=== PATIENT | female | born 1955 | race Caucasian/White ===

== ENCOUNTER 2021-01-23 19:05 | Emergency (ER) | payer MEDICARE, OTHER ==
--- NOTE | 2021-01-23 19:32 | EDM.PDOC ---
ED HPI GENERAL MEDICAL PROBLEM - General Chief Complaint: Genitourinary Problem Stated Complaint: uti Time Seen by Provider: 01/23/21 19:15 Source of Information: Reports: Patient History Limitations: Reports: No Limitations - History of Present Illness INITIAL COMMENTS - FREE TEXT/NARRATIVE: pt states x2 days of frequency, urgency, hesitancy. denies fever, chills, nausea, backache, emily hematuria. - Related Data Allergies Allergy/AdvReac Type Severity Reaction Status Date / Time hydromorphone [From Dilaudid] Allergy Other Verified 01/24/21 07:46 ondansetron [From Zofran] Allergy Vomiting Verified 01/24/21 07:46 Sulfa (Sulfonamide Allergy Other Verified 01/24/21 07:46 Antibiotics) Home Meds: Home Meds Amoxicillin/Potassium Clav [Amox Tr-K Clv 875-125 mg Tab] 1 each PO BID #10 tablet 01/23/21 [Rx] ED ROS GENERAL - Review of Systems Review Of Systems: Comprehensive ROS is negative, except as noted in HPI. ED EXAM, GENERAL - Physical Exam Exam: See Below Exam Limited By: No Limitations General Appearance: Alert Respiratory/Chest: No Respiratory Distress, Lungs Clear, Normal Breath Sounds Cardiovascular: Normal Peripheral Pulses, Regular Rate, Rhythm, No Murmur GI/Abdominal: Soft, Other (suprapubic TTP) Course - Vital Signs Last Recorded V/S: Last Vital Signs Temp 97.6 F 01/23/21 19:07 Pulse 71 01/23/21 19:07 Resp 16 01/23/21 19:07 BP 139/73 01/23/21 19:07 Pulse Ox 99 01/23/21 19:07 - Orders/Labs/Meds Orders: Active Orders 24 hr Category Date Time Status CULTURE URINE [RM] Stat Lab 01/23/21 19:27 Received Labs: Laboratory Tests 01/23/21 Range/Units 19:27 Urine Color Yellow Urine Appearance Clear (CLEAR) Urine pH 7.0 (5.0-8.0) Ur Specific [place] 1.025 (1.003-1.030) Urine Protein Trace H (NEGATIVE) mg/dL Urine Glucose (UA) Negative (NEGATIVE) mg/dL Urine Ketones Trace H (NEGATIVE) mg/dL Urine Occult Blood Trace-intact H (NEGATIVE) Urine Nitrite Negative (NEGATIVE) Urine Bilirubin Negative (NEGATIVE) Urine Urobilinogen 0.2 (0.2-1.0) E.U./dL Ur Leukocyte Esterase Small H (NEGATIVE) Urine RBC 0-5 H /HPF Urine WBC 20-30 H /HPF Ur Squamous Epith Cells Few /HPF Meds: Medications Discontinued Medications Generic Name Dose Route Start Last Admin Trade Name Freq PRN Reason Stop Dose Admin Amoxicillin/Clavulanate Potassium 1 tab 01/23/21 19:59 01/23/21 20:05 Amoxicillin/Clavulanate K 875-125 Mg Tab PO 01/23/21 20:00 1 tab ONETIME ONE Administration Phenazopyridine HCl 100 mg 01/23/21 19:35 01/23/21 19:48 Phenazopyridine 100 Mg Tab PO 01/23/21 19:36 100 mg NOW STA Administration Departure - Departure Time of Disposition: 20:04 Disposition: Home, Self-Care 01 Condition: Good Clinical Impression: UTI (urinary tract infection), uncomplicated - Discharge Information *PRESCRIPTION DRUG MONITORING PROGRAM REVIEWED*: Not Applicable *COPY OF PRESCRIPTION DRUG MONITORING REPORT IN PATIENT ANN: Not Applicable Prescriptions: Amoxicillin/Potassium Clav [Amox Tr-K Clv 875-125 mg Tab] 1 each PO BID #10 tablet Referrals: PCP,None [Primary Care Provider] - Forms: ED Department Discharge Additional Instructions: UTI seen today on sample amoxicillin twice per day for the next 5 days starting tomorrow for bladder/urinary discomfort: phenozapyridine (pyridium) this is over the counter and can be picked up at the pharmacy without a prescription. if you pick it up you may take it 2-3 times per day for urinary/bladder discomfort. symptoms should improve greatly in the next 24-48 hrs. call here or your regular doctor if questions or concerns. if symptoms worsen at any time, call your regular doctor or return the ER. - My Orders Last 24 Hours: My Active Orders 01/23/21 19:27 CULTURE URINE [RM] Stat - Assessment/Plan Last 24 Hours: My Active Orders 01/23/21 19:27 CULTURE URINE [RM] Stat Plan: UTI will treat with augmentin and pyridium. first doses provided tonight and prescription sent home with pt. encouraged increased fluid intake and pt agreeable with plan of care, discharged home in care of .
[2021-01-23] MEDS ORDERED: Phenazopyridine 100 MG Tab PO STA (19:35)
[2021-01-23] MEDS ORDERED: Amoxicillin/Clavulanate K 875-125 MG Tab PO ONE (19:59)
== END 2021-01-23 20:18 | disposition home or self-care (01) ==
LOC: LB.ED 19:05
DX: N39.0 Urinary tract infection, site not specified (principal); Z88.2 Allergy status to sulfonamides; Z88.6 Allergy status to analgesic agent; Z88.5 Allergy status to narcotic agent
CPT/HCPCS: 81001; 87086; 99283; A9270